=== PATIENT | female | born 1960 | race Caucasian/White ===

== ENCOUNTER 2017-09-22 09:03 | Day surgery (SDC) | payer MEDICARE, MEDICAID ==
[2017-09-15 09:02] LABS: ABSOLUTE EOSINOPHILS # (AUTO) 0.1 10^3/uL (0.0-0.6); ABSOLUTE LYMPHOCYTES (AUTO) 2.5 10^3/uL (0.5-4.7); ABSOLUTE MONOCYTES (AUTO) 0.4 10^3/uL (0.1-1.4); ABSOLUTE NEUT (AUTO) 5.7 10^3/uL (1.7-8.2); BASOPHILS % (AUTO) 0.2 % (0-2); EOSINOPHILS % (AUTO) 1.4 % (0-6); HEMATOCRIT 39.5 % (36.0-47.0); LYMPHOCYTES % (AUTO) 28.9 % (13-45); MEAN CORPUSCULAR HEMOGLOBIN 28.6 pg (27.0-33.4); MEAN CORPUSCULAR VOLUME 87 fl (80-97); MONOCYTES % (AUTO) 4.9 % (3-13); PLATELET COUNT 275 10^3/uL (150-450); RED BLOOD COUNT 4.55 10^6/uL (3.72-5.28); RED CELL DISTRIBUTION WIDTH 14.8 % (11.5-14.0); SEGMENTED NEUTROPHILS % (AUTO) 64.6 % (42-78); TOTAL CELLS COUNTED % (AUTO) 100 %; WHITE BLOOD COUNT 8.8 10^3/uL (4.0-10.5)
[2017-09-15 09:03] LABS: APPEARANCE,URINE CLEAR; BILIRUBIN,URINE NEGATIVE (NEGATIVE); COLOR,URINE STRAW; GLUCOSE, URINE NEGATIVE (NEGATIVE); KETONES,URINE NEGATIVE (NEGATIVE); LEUKOCYTE ESTERASE,URINE NEGATIVE (NEGATIVE); NITRITE,URINE NEGATIVE (NEGATIVE); PROTEIN,URINE NEGATIVE (NEGATIVE); URINE SPECIFIC GRAVITY 1.004; UROBILINOGEN,URINE NEGATIVE mg/dL (<2.0)
--- NOTE | 2017-09-15 09:17 | RADIOLOGY REPORT (SQ) ---
EXAM DESCRIPTION: CHEST PA/LATERAL COMPLETED DATE/TIME: 09/15/2017 8:52 am REASON FOR STUDY: PRE-OP COMPARISON: None. EXAM PARAMETERS: NUMBER OF VIEWS: two views TECHNIQUE: Digital Frontal and Lateral radiographic views of the chest acquired. RADIATION DOSE: NA LIMITATIONS: none FINDINGS: LUNGS AND PLEURA: No opacities, masses or pneumothorax. No pleural effusion. MEDIASTINUM AND HILAR STRUCTURES: No masses or contour abnormalities. HEART AND VASCULAR STRUCTURES: Heart normal size. No evidence for failure. BONES: No acute findings. HARDWARE: Clips right upper quadrant post cholecystectomy OTHER: No other significant finding. IMPRESSION: NO SIGNIFICANT RADIOGRAPHIC FINDING IN THE CHEST. TECHNICAL DOCUMENTATION: JOB ID: [id number] AMT- All Rights Reserved
[2017-09-15 09:20] LABS: ANION GAP 11 (5-19); BLOOD UREA NITROGEN 12 mg/dL (7-20); CALCIUM 9.9 mg/dL (8.4-10.2); CARBON DIOXIDE 27 mmol/L (22-30); CHLORIDE 106 mmol/L (98-107); GLUCOSE 87 mg/dL (75-110); POTASSIUM 4.2 mmol/L (3.6-5.0); SODIUM 143.7 mmol/L (137-145)
--- NOTE | 2017-09-15 12:19 | EKG REPORT ---
SEVERITY:- NORMAL ECG - SINUS RHYTHM : Confirmed by: Young Diehl MD 15-Sep-2017 12:19:27
[~2017-09-22 09:03] MED LIST: CEFAZOLIN 2 GM/D5W RTU 2 GM/50 ML RTUPB IV PRN; LACTATED RINGERS 1000 ML IV PRN; LIDOCAINE 0.5% INJ-PF (5 MG/ML) 50 ML SDV SUBCUT PRN; SUCCINYLCHOLINE CHLORIDE INJ 200 MG/10 ML VIAL ONE
[2017-09-22] MEDS ORDERED: BUPIVACAINE HCL 0.5 % INJ/PF 30 ML SDV ONE (09:45)
[2017-09-22] MEDS ORDERED: LIDOCAINE 1% INJ-PF (10 MG/ML) 30 ML SDV ONE (09:45)
[2017-09-22] MEDS ORDERED: FENTANYL CITRATE INJ/PF 100 MCG/2 ML AMPUL ONE ×2 (12:27→14:33)
[2017-09-22] MEDS ORDERED: PROPOFOL INJ 200 MG/20 ML VIAL IV ONE (12:27)
[2017-09-22] MEDS ORDERED: MIDAZOLAM 2 MG/2 ML INJ ONE (12:27)
[2017-09-22] MEDS ORDERED: HYDROMORPHONE HCL INJ/PF 2 MG/ML AMPULE ONE (13:18)
[2017-09-22] MEDS ORDERED: FENTANYL CITRATE INJ/PF 100 MCG/2 ML AMPUL IV PRN ×3 (13:25)
[2017-09-22] MEDS ORDERED: PROMETHAZINE HCL INJ 25 MG/1 ML VIAL IV PRN (13:25)
[2017-09-22] MEDS ORDERED: MORPHINE SULFATE 10 MG/ML INJ IV PRN ×2 (13:25→14:37)
[2017-09-22] MEDS ORDERED: DIPHENHYDRAMINE HCL 50 MG/ML VIAL IV PRN (13:25)
[2017-09-22] MEDS ORDERED: OXYCODONE-ACETAMINOPHEN 5-325 MG TABLET PO PRN (14:37)
--- NOTE | 2017-09-22 14:37 | PDOC DISCHARGE SUMMARY ---
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 Karl Cruz @ [facility] for [facility] to be seen in 10-14 days or as scheduled [place]: [place]: [place]: Ice and elevate Keep splint clean/dry/intact. If your fingers become numb please unwrap the [place] wrap but leave the splint in place, if the sensation does not return within 30 minutes please return to the emergency department. Please use ibuprofen (Motrin or Advil) 600-800 mg every 8 hours as needed for pain or fever. You may also use acetaminophen (Tylenol) 1000 mg every 4-6 hours as needed for pain or fever. Please be aware that many medications contain acetaminophen, do not exceed a total of 1000 mg of acetaminophen every 6 hours. If ibuprofen and acetaminophen are not sufficient for your pain you may take the Percocet/Sandwich. Please be aware that the Percocet/Sandwich does contain Tylenol. Stool softener of choice when on pain medication. Prescriptions: Oxycodone HCl/Acetaminophen [Percocet 5-325 mg Tablet] 1 - 2 tab PO ASDIR PRN # 40 tablet PRN Reason: Discharge Diet: As Tolerated Respiratory Treatments at Home: Deep Breathing/Coughing Discharge Activity: No Lifting Over 10 Pounds, No Lifting/Push/Pulling Report the Following to Your Physician Immediately: Fever over 101 Degrees, Unusual Bleeding, Redness, Swelling, Warmth, Increased Soreness
--- NOTE | 2017-09-22 14:44 | Operative Report ---
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 Patient underwent soft tissue release which provided improved passive range of motion most definitively of her ring finger but she continued to have evidence of clawing. Furthermore patient has residual contracture of the small finger PIP joint. We discussed treatment options including possible tendon transfer through the ring finger and small finger with release of her small finger. Patient understands postoperative expectations and complications and consented for the procedure. Procedure In Detail: Patient was seen and evaluated in the preoperative holding area. The LEFT upper extremity was initialized and marked. Patient received 2g of Ancef IV for bacterial prophylaxis. Patient was taken back to the operative room where transferred to the operative table and placed under general anesthesia. Once they were adequately anesthetized a nonsterile tourniquet was placed on the upper extremity. A surgical team debriefing was performed ensuring all instrumentation was available, the surgical procedure was discussed with possible concerns reviewed. The upper extremity was prepped with chlorhexidine and alcohol and draped in a sterile fashion. A timeout was done identifying correct patient, procedure and extremity everyone in attendance agree with this and verbalized no concerns. The extremity was exsanguinated the tourniquet was inflated to 250 mmHg. Oblique skin incision was made over the proximal phalanx of the middle finger. Blunt dissection was performed. The A2 barbara was opened transversely but not released and the FDS was identified and released. A transverse skin incision was made along the distal flexion crease incorporating middle ring and small finger. Neurovascular bundles were identified along with the lumbricals. The FDS was then identified proximal to the A1 barbara and split into radial and ulnar tails proximal enough to rule out adequate transfer. Blunt dissection was then performed identifying the lumbrical tunnel volar to the deep transverse intermetacarpal ligament to the radial lateral band of the ring finger. A longitudinal skin incision was then made at this level of the ring finger proximal phalanx and the radial tail of the FDS was transferred to the ring finger. Similarly at the small finger the ulnar tail of the FDS was transferred through the lumbrical canal avoiding excessive dissection to protect against postoperative adhesion formation. Longitudinal skin incision was made along the proximal phalanx at the radial border of the small finger at the lateral bands. While my insurance underwriting assistant held the wrist in 30 of flexion MPs at 60 of flexion and IP joints in full extension the FDS of the ring finger was secured with a Pulver[place] weave through the lateral band and a small portion of the extensor tendon this was fixated with a 4-0 FiberWire horizontal mattress sutures. The same procedure was performed for the small finger of the FDS secured with a Pulver[place] weave through the lateral band and a small portion of the extensor tendon and secured with horizontal mattress 4-0 FiberWire suture. Prior to cutting the excess FDS I tested patient's tension patient had full extension of the IP joints with wrist flexion and near full flexion of the IP and MP joints with wrist extension. The tension felt appropriate thus further 4-0 FiberWire was utilized to secure the transfer. The excess FDS tendon was then excised. A small peripheral veins were coagulated with bipolar cautery. Wounds were copiously irrigated with normal saline. Skin incision was closed with interrupted 4-0 nylon suture. 30 cc of 0.5% Marcaine without epinephrine was injected for postoperative pain control. Dressing are placed and patient was placed in a dorsal blocking splint maintaining full IP joint extension with MP joint flexion of 60 and wrist flexion of 20. Sponge counts, instrument counts, needle counts counts were correct. Patient was then awoken from anesthesia. Transferred from the operating room table to the operating room stretcher. There was no intraoperative complications patient tolerated procedure well stable to PACU. Postoperative plan: Patient will be set up for occupational therapy within 7 days and fitted for a thermoplastic dorsal blocking splint maintaining MP joint flexion and for IP joint extension. Will begin IP joint flexion 6 weeks postoperatively.
[2017-09-22 16:31] VITALS: BP 155/87
== END 2017-09-22 16:25 | disposition home or self-care (01) ==
LOC: OROUT 09:03
PROVIDERS: ATTEND Orthopaedic Surgery
PROC: 0LX80ZZ Transfer Left Hand Tendon, Open Approach (ICD-10-PCS; principal; 2017-09-22 11:15)
DX: M21.512 Acquired clawhand, left hand (principal); M24.549 Contracture, unspecified hand; J44.9 Chronic obstructive pulmonary disease, unspecified; E03.9 Hypothyroidism, unspecified; I10 Essential (primary) hypertension; E78.5 Hyperlipidemia, unspecified; F17.210 Nicotine dependence, cigarettes, uncomplicated; K21.9 Gastro-esophageal reflux disease without esophagitis; M19.90 Unspecified osteoarthritis, unspecified site; E66.9 Obesity, unspecified; Z88.8 Allergy status to other drugs, medicaments and biological substances; Z79.899 Other long term (current) drug therapy; Z68.33 Body mass index [BMI] 33.0-33.9, adult
CPT/HCPCS: 93005; 36415 ×2; 84132; 85025; 80048; 81001; 71046; 93010; 26497; J2250; J3490; J3010; A9270; J0330; J2704; J0690; 1810; J1170